=== PATIENT | female | born 1965 | race Caucasian/White ===

== ENCOUNTER 2018-05-23 05:46 | Day surgery (SDC) | payer SELFPAY ==
[~2018-05-23] VITALS: Ht 157.5 cm; Wt 71.7 kg
[~2018-05-23 05:46] MED LIST: CALCIUM CARBON650 MG PO; CYANOCOBALAM1000 MCG PO; DAILY VITAMIN1 EAC8 PO; FISH OIL 1,0001 EAC7 PO; GLUCOSAMINE-CH1 EA14 PO; IBUPROFEN400 MG PO; MOTRIN IB200 MG PO; PRILOSEC10 MG PO; PROBIOTIC1 EAC2 PO; RANITIDINE HCL300 MG PO; TUMS500 MG PO; TYLENOL EXTRA500 MG PO; VITAMIN C500 M1 PO; VITAMIN D2000 UNIT PO
[2018-05-23 06:58] VITALS: BP 112/65
[2018-05-23] MEDS ORDERED: ULTRAM50 MG PO (08:33)
[2018-05-23 10:30] VITALS: BP 119/59
[2018-05-23 11:30] VITALS: BP 132/65
[2018-05-23 12:00] VITALS: BP 132/71
== END 2018-05-23 12:11 | disposition home or self-care (01) ==
LOC: SDC 05:46
PROC: 0FT44ZZ Resection of Gallbladder, Percutaneous Endoscopic Approach (ICD-10-PCS; principal; 2018-05-23)
DX: K66.0 Peritoneal adhesions (postprocedural) (postinfection) (principal); M25.50 Pain in unspecified joint; K21.9 Gastro-esophageal reflux disease without esophagitis; Z98.1 Arthrodesis status; Z83.49 Family history of other endocrine, nutritional and metabolic diseases; Z83.79 Family history of other diseases of the digestive system
CPT/HCPCS: 88304; J0131; J0330; J0690; J1100; J1170; J2250; J2310; J2405; J2765; J3010; J7120; Q0175